=== PATIENT | female | born 1960 | race Caucasian/White ===

== ENCOUNTER 2018-11-06 10:47 | Emergency (ER) | payer BC ==
[2018-11-06] MEDS ORDERED: amLODIPine 5 MG Tab PO SCH (12:45)
--- NOTE | 2018-11-06 13:04 | EDM.PDOC ---
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 She noted for the first time she felt a "flutter" in her anterior chest. She has noted she had mild diaphoresis, for past week. She didnot pay any attention to the diaphoresis because she thought it was a menopausal symptom. She denies SOB,dyspnea, orthopnea, pedal edema, abd pain, of back injury or heavy lifting. She has baseline of restless sleep. - Related Data Allergies Allergy/AdvReac Type Severity Reaction Status Date / Time No Known Allergies Allergy Verified 11/06/18 13:22 Home Meds: Home Meds Losartan [Cozaar] 100 mg PO DAILY 11/06/18 [History] Past Medical History - Past Health History Medical/Surgical History: Denies Medical/Surgical History Cardiovascular History: Reports: Hypertension - Infectious Disease History Infectious Disease History: Reports: Chicken Pox - Past Surgical History HEENT Surgical History: Reports: Tonsillectomy ED ROS GENERAL - Review of Systems Review Of Systems: ROS reveals no pertinent complaints other than HPI. ED EXAM, GENERAL - Physical Exam Exam: See Below Free Text/Narrative:: A pleasant well muscled and well nourished woman who looks younger than her age in no acute distress Exam Limited By: No Limitations General Appearance: Alert, WD/WN, No Apparent Distress Eye Exam: Bilateral Eye: Normal Inspection Ear Exam: Bilateral Ear: Auricle Normal, Canal Normal, TM normal Nose: Normal Inspection, Normal Mucosa, No Blood, Nasal Tenderness Throat/Mouth: Normal Inspection, Normal Lips, Normal Teeth, Normal Gums, Normal Oropharynx Head: Atraumatic, Normocephalic Neck: Normal Inspection, Supple, Non-Tender, Full Range of Motion Respiratory/Chest: No Respiratory Distress, Lungs Clear, Normal Breath Sounds, No Accessory Muscle Use, Chest Non-Tender Cardiovascular: Normal Peripheral Pulses, No Edema, No Gallop, No JVD, No Murmur , No Rub, Other (Intermittent quadrigeminy and trigeminy without symptoms) Peripheral Pulses: 1+: Dorsalis Pedis (L), Dorsalis Pedis (R), 2+: Brachial (L) , Brachial (R), Radial (L), Radial (R) (Female) Exam: Deferred Rectal (Female) Exam: Deferred Back Exam: Normal Inspection Extremities: Normal Inspection, Normal Range of Motion, Non-Tender, No Pedal Edema, Normal Capillary Refill Neurological: Alert, Oriented, CN II-XII Intact, Normal Cognition, Normal Gait, Normal Reflexes, No Motor/Sensory Deficits Psychiatric: Normal Affect, Normal Mood Skin Exam: Warm, Dry, Intact, Normal Color EKG INTERPRETATION EKG Date: 11/06/18 (No PVCs noted on the EKG but on the monitor strip should have trigeminy and quadrigeminy) Time: 11:10 Rhythm: NSR [place]: Normal P-Wave: Present QRS: Normal ST-T: Normal QT: Normal EKG Interpretation Comments: Normal EKG sinus rhythm Course - Vital Signs Last Recorded V/S: Last Vital Signs Temp 36.8 C 11/06/18 10:50 Pulse Resp BP 156/81 H 11/06/18 12:51 Pulse Ox - Orders/Labs/Meds Orders: Active Orders 24 hr Category Date Time Status EKG Documentation Completion [RC] ASDIRECTED Care 11/06/18 11:05 Active Ang Chest [CT] Stat Exams 11/06/18 12:41 Taken D Dimer [D-DIMER QUANTITATIVE] [COAG] Stat Lab 11/06/18 13:35 Received TROPONIN I [CHEM] Stat Lab 11/06/18 13:35 Received amLODIPine [Norvasc] Med 11/06/18 12:45 Active 5 mg PO DAILY EKG 12 Lead [EK] Routine Ther 11/06/18 11:03 Ordered Medication Orders Amlodipine Besylate (Norvasc) 5 mg PO DAILY [facility] Last Admin: 11/06/18 12:51 Dose: 5 mg Labs: Laboratory Tests 02/04/19 02/04/19 02/04/19 Range/Units 11:15 11:15 11:15 WBC 5.2 (4.5-12.0) X10-3/uL RBC 4.77 (3.23-5.20) x10(6)uL Hgb 15.0 (11.5-15.5) g/dL Hct 43.8 (30.0-51.3) % MCV 91.6 (80-96) fL MCH 31.3 (27.7-33.6) pg MCHC 34.2 (32.2-35.4) g/dL RDW 11.7 (11.5-15.5) % Plt Count 186 (125-369) X10(3)uL MPV 9.3 (7.4-10.4) fL Neut % (Auto) 68.2 (46-82) % Lymph % (Auto) 22.1 (13-37) % [place] % (Auto) 7.4 (4-12) % Eos % (Auto) 2 (1.0-5.0) % Baso % (Auto) 1 (0-2) % Neut # (Auto) 3.6 (1.6-8.3) # Lymph # (Auto) 1.1 (0.6-5.0) # [place] # (Auto) 0.4 (0.0-1.3) # Eos # (Auto) 0.1 (0.0-0.8) # Baso # (Auto) 0.0 (0.0-0.2) # Sodium 133 L (135-145) mmol/L Potassium 3.4 L (3.5-5.3) mmol/L Chloride 96 L (100-110) mmol/L Carbon Dioxide 26 (21-32) mmol/L BUN 13 (7-18) mg/dL Creatinine 0.8 (0.55-1.02) mg/dL Est Cr Clr Drug Dosing TNP Estimated GFR (MDRD) > 60 (>60) BUN/Creatinine Ratio 16.3 (9-20) Glucose 104 (80-116) mg/dL Calcium 9.5 (8.6-10.2) mg/dL Total Bilirubin 0.7 (0.1-1.3) mg/dL AST 23 (5-25) IU/L ALT 29 (12-36) U/L Alkaline Phosphatase 53 L (56-112) IU/L Troponin I 0.048 (<0.017-0.056) ng/mL Total Protein 7.3 (6.0-8.0) g/dL Albumin 4.1 (3.5-5.2) g/dL Globulin 3.2 g/dL Albumin/Globulin Ratio 1.3 TSH, Ultra Sensitive (0.36-3.74) IU/mL Urine Color (YELLOW) Urine Appearance (CLEAR) Urine pH (5.0-6.5) Ur Specific [place] (1.010-1.025) Urine Protein (NEGATIVE) mg/dL Urine Glucose (UA) (NEGATIVE) mg/dL Urine Ketones (NEGATIVE) mg/dL Urine Occult Blood (NEGATIVE) Urine Nitrite (NEGATIVE) Urine Bilirubin (NEGATIVE) Urine Urobilinogen (NEGATIVE) mg/dL Ur Leukocyte Esterase (NEGATIVE) Urine WBC (0) Ur Squamous Epith Cells (NS,R,O) Urine Bacteria (NS) 11/06/18 11/06/18 Range/Units 11:15 11:42 WBC (4.5-12.0) X10-3/uL RBC (3.23-5.20) x10(6)uL Hgb (11.5-15.5) g/dL Hct (30.0-51.3) % MCV (80-96) fL MCH (27.7-33.6) pg MCHC (32.2-35.4) g/dL RDW (11.5-15.5) % Plt Count (125-369) X10(3)uL MPV (7.4-10.4) fL Neut % (Auto) (46-82) % Lymph % (Auto) (13-37) % [place] % (Auto) (4-12) % Eos % (Auto) (1.0-5.0) % Baso % (Auto) (0-2) % Neut # (Auto) (1.6-8.3) # Lymph # (Auto) (0.6-5.0) # [place] # (Auto) (0.0-1.3) # Eos # (Auto) (0.0-0.8) # Baso # (Auto) (0.0-0.2) # Sodium (135-145) mmol/L Potassium (3.5-5.3) mmol/L Chloride (100-110) mmol/L Carbon Dioxide (21-32) mmol/L BUN (7-18) mg/dL Creatinine (0.55-1.02) mg/dL Est Cr Clr Drug Dosing Estimated GFR (MDRD) (>60) BUN/Creatinine Ratio (9-20) Glucose (80-116) mg/dL Calcium (8.6-10.2) mg/dL Total Bilirubin (0.1-1.3) mg/dL AST (5-25) IU/L ALT (12-36) U/L Alkaline Phosphatase (56-112) IU/L Troponin I (<0.017-0.056) ng/mL Total Protein (6.0-8.0) g/dL Albumin (3.5-5.2) g/dL Globulin g/dL Albumin/Globulin Ratio TSH, Ultra Sensitive 4.33 H (0.36-3.74) IU/mL Urine Color Yellow (YELLOW) Urine Appearance Clear (CLEAR) Urine pH 8.0 H (5.0-6.5) Ur Specific [place] 1.015 (1.010-1.025) Urine Protein Negative (NEGATIVE) mg/dL Urine Glucose (UA) Normal (NEGATIVE) mg/dL Urine Ketones Negative (NEGATIVE) mg/dL Urine Occult Blood Negative (NEGATIVE) Urine Nitrite Negative (NEGATIVE) Urine Bilirubin Negative (NEGATIVE) Urine Urobilinogen Normal (NEGATIVE) mg/dL Ur Leukocyte Esterase Negative (NEGATIVE) Urine WBC 0-5 (0) Ur Squamous Epith Cells Occasional (NS,R,O) Urine Bacteria Occasional H (NS) Meds: Medications Generic Name Dose Route Start Last Admin Trade Name Freq PRN Reason Stop Dose Admin Amlodipine Besylate 5 mg 11/06/18 12:45 11/06/18 12:51 Norvasc PO 5 mg DAILY SHIRA Administration Discontinued Medications Generic Name Dose Route Start Last Admin Trade Name Freq PRN Reason Stop Dose Admin Iopamidol 75 ml 11/06/18 13:13 Isovue-370 (76%) IV 11/06/18 13:14 ONETIME ONE - Re-Assessments/Exams Free Text/Narrative Re-Assessment/Exam: 11/06/18 13:[address] Tilley burner hand [facility] and he suggested because of her interscapular pain getting aortic Angers cramped also like refills for stress test. Arrangement have been made 7:45 AM November 08 [facility] at [phone] (radiology scheduling); [phone] second [facility]. arrangement have been discussed with her health care provider Deborah Bridges 11/06/18 13:51 Telephone report of the aortogram 1352 negative, suggestion of mild pulmonary vascular congestion, possible murmurs mild congestive heart failure, and midthoracic degenerative disc disease. Departure - Departure Time of Disposition: 13:55 (No evidence for myocardial ischemia or thoracic aorta or abdominal aortic aneurysm. Possibly, her pain may be related to mild degenerative thoracic spine changes. However the PVCs trigeminy quadrigeminy require further investigation. I have discussed her case with Dr. Tilley, burner hand at [facility], arrangements have been made for a stress test on Tuesday, ; 7:45 AM at the [facility] sceduling/radiology's number [phone] if pt hjas any questons. Patient's labile hypertension will be treated with using amlodipine 5 mg daily. She is to continue her losartan. Also she should forgo her exercise activity on her treadmill for 2 days until she gets cleared with her stress test at [facility] Tuesday morning.) Disposition: Home, Self-Care 01 Condition: Good Clinical Impression: Ventricular arrhythmia, Ventricular quadrigeminy, Ventricular trigeminy, Dizziness, Labile hypertension Thoracic back pain Qualifiers: Chronicity: acute Back pain laterality: bilateral Qualified Code(s): M54.6 - Pain in thoracic spine - Discharge Information *PRESCRIPTION DRUG MONITORING PROGRAM REVIEWED*: Not Applicable *COPY OF PRESCRIPTION DRUG MONITORING REPORT IN PATIENT LEOLA: Not Applicable Referrals: Maureen Wong NP [Primary Care Provider] - Forms: ED Department Discharge - My Orders Last 24 Hours: My Active Orders 11/06/18 11:03 EKG 12 Lead [EK] Routine 11/06/18 11:05 EKG Documentation Completion [RC] ASDIRECTED 11/06/18 12:41 Ang Chest [CT] Stat 11/06/18 12:45 amLODIPine [Norvasc] 5 mg PO DAILY 11/06/18 13:35 D Dimer [D-DIMER QUANTITATIVE] [COAG] Stat TROPONIN I [CHEM] Stat - Assessment/Plan Last 24 Hours: My Active Orders 11/06/18 11:03 EKG 12 Lead [EK] Routine 11/06/18 11:05 EKG Documentation Completion [RC] ASDIRECTED 11/06/18 12:41 Ang Chest [CT] Stat 11/06/18 12:45 amLODIPine [Norvasc] 5 mg PO DAILY 11/06/18 13:35 D Dimer [D-DIMER QUANTITATIVE] [COAG] Stat TROPONIN I [CHEM] Stat
[2018-11-06] MEDS: Iopamidol 755 Mg/ML 75 ML Bottle IV ONE (13:25)
--- NOTE | 2018-11-06 13:30 | CR ---
INDICATION: Light-headed, dizzy. CHEST: An AP upright portable view of the chest was obtained 11/06/18 - no comparisons. The heart appears to be at the upper limits of normal in size. The aorta is tortuous with calcification in the arch. Overlying EKG leads are noted. An active infiltrate or effusion was not identified. IMPRESSION: 1. No acute process. 2. ASD aorta. MTDD
--- NOTE | 2018-11-06 14:47 | CT ---
INDICATION: Question aneurysm, interscapular pain, and chest pain. COMPUTERIZED TOMOGRAPHY ANGIOGRAPHY OF THE CHEST WITH CONTRAST: Spiral 1.25 mm axial sections were obtained through the chest with 73 mL Isovue 370 at 3 mL/ second, with sagittal and coronal reconstructions, 11/06/18 - no comparisons. Total exam DLP = 474.75 mGy-cm. Mild emphysematous changes are noted. Slightly prominent interstitial markings are noted in the lower lobes, which may be on the basis of congestion. The heart appears slightly enlarged. No pericardial effusion was seen. No nodular masses were identified in the lungs or pleural spaces. No pleural effusion was seen. In the upper abdomen included on the study, there are three low density lesions in the liver, two in the right lobe and one in the left lobe. Likely these are benign cystic structures. No gallstones were demonstrated. No mediastinal masses were identified. The aorta is intact with some calcification in the arch. No aneurysmal dilatation or dissection was suggested. No evidence of pulmonary embolism was seen. There are some degenerative changes and disk disease in the lower middle thoracic spine with hypertrophic lipping anteriorly off vertebral bodies and vacuum disk phenomena at two levels. IMPRESSION: 1. Degenerative changes and disk disease lower middle thoracic spine. 2. No evidence of PE. 3. Suggestion of mild cardiomegaly with some pulmonary vascular congestion, likely on a chronic basis but should be correlated clinically as to the possibility of acute myocardial event with mild degree of pulmonary vascular congestion - CHF. 4. No other findings to suggest an acute abnormality were identified. Report was called to Dr. Rees at 1353 hours on 11/06/18. ADARSH
[2018-11-08] MEDS: Iopamidol 755 Mg/ML 75 ML Bottle IV ONE (15:22)
== END 2018-11-06 14:30 | disposition home or self-care (01) ==
LOC: FB.ED 10:47
DX: I49.3 Ventricular premature depolarization (principal); M54.6 Pain in thoracic spine; I10 Essential (primary) hypertension; Z98.890 Other specified postprocedural states
CPT/HCPCS: 36415; 71045; 71275; 80053; 81001; 83880; 84443; 84484; 85025; 85379; 93005; 99284; A9270-GY; Q9967